=== PATIENT | female | born 1990 | race Caucasian/White ===

== ENCOUNTER 2018-01-12 21:36 | Emergency (ER) | payer OTHER ==
--- OUTSIDE RECORDS SUMMARY | 2018-01-12 21:44 | XMS REPORT | Continuity of Care Document ---
:1990 External Reference #:[id number] Author Name Davida Jerome PA Address [address] [place] [address] Care Team Providers Name Role Phone Vitor Crain M.D. 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 [place] [address] Effective: 1990 Policy Number: Medicaid [facility] Bj Carrasco [id number] Sect Group Name: 1 1 [address] PayID: [id number] [place] [address] Advance Directives Description No Information Available Problems Date Description Provider Status Onset: 05/01/2013 Asthma without status asthmaticus Vitor Crain M.D. Active Family History Date Family Member(s) Problem(s) Comments Mother due to MVA () Uncle Colon Cancer Social History Type Date Description Comments Sex Unknown Marital Status Legal Status: Lives With Spouse Work Status Unemployed Stay at home Mother Tobacco Use Start: Unknown End: Quit Pt quit 9 mos ago Unknown ETOH Use Denies alcohol use Recreational Drug Use Denies Drug Use Tobacco Use Reviewed: 04/13/17 Light tobacco smoker (10 or fewer cigarettes/day) Smoking Status Reviewed: 12/27/17 Light tobacco smoker (10 or fewer cigarettes/day) Allergies, Adverse Reactions, Alerts Date Description Reaction Status Severity Comments 05/01/2013 Latex Active 05/01/2013 Terbinafine Active Medications Medication Date Status Form Strength Qnty SIG Indications Ordering Provider Azithromycin 12/20/ Active Tablets 250mg 6tabs 2 tablets J20.9 2017 day one Castellan then one os, M.D. tablet day2 thru day 5 Proair HFA 08/20/ Active Aerosol 108(90Base 1units 2 puffs J45.909 Vitor 2014 ) mcg/Act every 4 Castellan hours as os, M.D. needed Benzonatate / Active Capsules 200mg Take One Unknown 0000 Capsule By Mouth Three Times A Day Prednisone / Active Tablets 20mg Take Two Unknown 0000 Tablets By Mouth Every Day Alkalol 04/01/ Hx Solution 16Oz use four J01.90 Vitor 2015 - times a day Castellan 04/12/ with os, M.DKi 2016 applicator Sulfamethoxazo 01/08/ Hx Tablets 800-160mg 42tabs 1 by mouth N39.0 Vitor sewell/Trimethopri 2014 - twice a day Castellan m DS 04/12/ os, M.DKi 2016 Azithromycin 12/20/ Hx Tablets 250mg 6tabs 2 now and 1 J01.90 Vitor 2014 - daily x 4 Castellan 01/08/ days os, M.DKi 2014 Omeprazole 12/10/ Hx Capsules 40mg 30caps 1 by mouth K21.0 Vitor 2014 - every day Castellan 04/13/ os, M.DKi 2018 Adenike-Be 08/20/ Hx Tablets 0.35mg one daily Vitor 2014 - Castellan 04/12/ os, M.DKi 2017 Docusate 08/20/ Hx Capsules 100mg 90caps 3 at 564.00 Vitor Huitron 2014 - bedtime Castellan 04/12/ os, M.DKi 2017 Tramadol HCL 04/23/ Hx Tablets 50mg 60tabs 1 every 4 784.0 Vitor 2014 - hours for Castellan 08/20/ headache or os, M.DKi 2015 2 every 4 hours for severe pain. Alprazolam 04/23/ Hx Tablets 0.5mg 3tabs 1 by mouth Vitor 2014 - 1/2 hour Castellan 05/01/ before os, M.DKi 2014 procedure and may repeat at procedure if needed Plus 05/01/ Hx Tablets 27-1mg Vitor 2013 - Castellan 05/01/ os, M.DKi 2014 Immunizations CPT Code Status Date Vaccine Lot # [id number] Given 01/21/2015 Influenza Vac,Quad,Split=>3 Yrs flu>3 [id number] Given 10/15/2013 Tdap Vaccine over 7 yrs old Vital Signs Date Vital Result Comment 12/20/2017 11:07am Weight 202.00 lb BP Systolic 100 mmHg BP Diastolic 70 mmHg Heart Rate 80 /min Body Temperature 99.0 F O2 % BldC Oximetry 98 % 04/13/2017 10:10am Weight 211.00 lb BP Systolic 100 mmHg BP Diastolic 72 mmHg Height 62.25 inches 5'2.25" Heart Rate 72 /min Respiratory Rate 16 /min BMI (Body Mass Index) 38.3 kg/m2 04/12/2016 10:12am Weight 208.00 lb BP Systolic 108 mmHg BP Diastolic 80 mmHg Height 62.25 inches 5'2.25" Heart Rate 72 /min Respiratory Rate 16 /min BMI (Body Mass Index) 37.7 kg/m2 04/01/2015 1:48pm Weight 209.00 lb BP Systolic 100 mmHg BP Diastolic 60 mmHg Heart Rate 110 /min Body Temperature 100.8 F O2 % BldC Oximetry 97 % 01/21/2015 11:00am Weight 211.00 lb BP Systolic 98 mmHg BP Diastolic 84 mmHg 01/08/2015 1:37pm Weight 199.00 lb BP Systolic 100 mmHg BP Diastolic 70 mmHg 12/20/2014 11:05am Weight 212.00 lb BP Systolic 100 mmHg BP Diastolic 70 mmHg Body Temperature 97.7 F 12/10/2014 1:45pm Weight 211.00 lb BP Systolic 102 mmHg BP Diastolic 82 mmHg 08/20/2014 10:59am Weight 203.00 lb BP Systolic 98 mmHg BP Diastolic 80 mmHg Height 62.25 inches 5'2.25" Heart Rate 68 /min Body Temperature 97.7 F Respiratory Rate 16 /min BMI (Body Mass Index) 36.8 kg/m2 05/01/2014 2:25pm Weight 196.00 lb BP Systolic 108 mmHg BP Diastolic 76 mmHg 04/23/2014 2:05pm Weight 194.00 lb BP Systolic 110 mmHg BP Diastolic 88 mmHg 11/27/2013 11:03am Weight 195.50 lb BP Systolic 100 mmHg BP Diastolic 64 mmHg 09/26/2013 3:56pm Weight 197.00 lb BP Systolic 100 mmHg BP Diastolic 68 mmHg 09/17/2013 4:08pm Weight 187.00 lb BP Systolic 92 mmHg BP Diastolic 66 mmHg 07/31/2013 9:17am Weight 189.00 lb 05/01/2013 4:00pm Weight 186.00 lb Height 62 inches 5'2" BMI (Body Mass Index) 34.0 kg/m2 Results Test Date Facility Test Result H/L Range Note Chlamydia/GC 04/23/2017 [facility] Chlamydia Negative Negative 1 Lisbeth, Urine [phone] Trachomatis,Ur -PCR Neisseria Gonorrhoeae,Ur -PCR Negative Negative 2 Comprehensive Metabolic Panel 04/23/2017 [facility] Glucose 91 mg/dL 74-106 [phone] BUN 11 mg/dL 7-18 Creatinine 1.0 mg/dL 0.6-1.3 Glom Filtration Rate, Estimate >60 mL/min >60 If >60 mL/min >60 3 BUN/Creat 11.0 ratio Sodium 139 mmol/L 136-145 Potassium 3.3 mmol/L Low 3.5-5.1 Chloride 107 mmol/L 98-107 Carbon Dioxide 28 mmol/L 21-32 Anion Gap 4 mEq/L Low 8-16 Calcium 8.7 mg/dL 8.5-10.1 Total Protein 7.6 g/dL 6.4-8.2 Albumin 3.9 g/dL 3.4-5.0 Globulin 3.7 g/dL 1.9-4.3 Alb/Glob 1.1 ratio Bilirubin,Total 0.4 mg/dL 0.2-1.0 Sgot/Ast 16 U/L 15-37 SGPT/Alt 21 U/L 12-78 Alkaline Phosphatase 69 U/L 45-117 CBS W/Automated 04/23/2017 [facility] White Blood 11.9 K/uL High 3.1-10.7 Diff [phone] Count Red Blood Count 5.29 M/uL 3.90-5.40 Hemoglobin 14.8 gm/dL 11.6-15.8 Hematocrit 43.7 % 36.0-46.1 Mean Cell Volume 82.6 fl 80.9-99.0 Mean Corpuscular HGB 28.0 pg 25.9-32.7 Mean Corpuscular HGB Conc 33.9 g/dL 30.8-34.3 Platelet Count 351 K/uL 155-360 Red Cell Distri Width SD 43.9 fl 3-47 Red Cell Distri Width %CV 14.7 % High 11.7-14.4 Mean Platelet Volume 10.1 fL 8.9-12.4 Neut% 71.4 % 40.4-72.8 Lymph % 21.3 % 20.0-42.0 [place] % 5.0 % 4.3-13.2 Eo% 2.1 % 0.0-6.6 Bas% 0.2 % 0.0-1.1 Neut# 8.50 K/uL High 1.8-7.0 Lymph # 2.53 K/uL 1.0-4.0 [place] # 0.60 K/uL 0.3-0.9 Eos # 0.25 K/uL 0.0-0.5 Baso # 0.02 K/uL 0.0-0.1 Slide Review 04/23/2017 [facility] Slide Review (SEE NOTE) 4 [phone] Urine HCG 04/23/2017 [facility] Urine HCG NEGATIVE Negative 5 (Qualitative) [phone] (Qualitative) Source: URINE, CLEAN CAT <SEE NOTE> 6 Ua RFX Micro & Culture II 04/23/2017 [facility] Urine Color YELLOW Yellow [phone] Urine Clarity CLEAR Clear Urine Glucose - Dipstick NEGATIVE mg/dL Negative Urine Bilirubin - Dipstick NEGATIVE Negative Urine Ketone NEGATIVE mg/dL Negative Urine Specific [place] <=1.005 Low 1.010-1.030 Urine Blood NEGATIVE Negative Urine PH 5.5 Low 6.5-7.5 Urine Protein - Dipstick NEGATIVE mg/dL Negative Urine Urobilinogen - Dipstick 0.2 E.U./dL 0.2-1.0 Urine Nitrite - Dipstick NEGATIVE Negative Urine Leuk Esterase NEGATIVE Negative Source: URINE, CLEAN CAT <SEE NOTE> 7 Influenza A/B 03/19/2017 [facility] Influenza A Negative (Negative ) 8 Antigen [phone] Antigen Influenza B Antigen Negative (Negative) 9 Laboratory test 06/17/2016 [facility] Urine HCG NEGATIVE Negative 10, finding [phone] (Qualitative) 11 Comprehensive 04/12/2016 [facility] Glucose 82 mg/dL 74-106 12 Metabolic Panel [phone] BUN 13 mg/dL 7-18 Creatinine 0.8 mg/dL 0.6-1.3 Glom Filtration Rate, Estimate >60 mL/min >60 If >60 mL/min >60 13 BUN/Creat 16.2 ratio Sodium 141 mmol/L 136-145 Potassium 4.0 mmol/L 3.5-5.1 Chloride 110 mmol/L High 98-107 Carbon Dioxide 22 mmol/L 21-32 Anion Gap 9 mEq/L 8-16 Calcium 8.4 mg/dL Low 8.5-10.1 Total Protein 7.6 g/dL 6.4-8.2 Albumin 3.7 g/dL 3.4-5.0 Globulin 3.9 g/dL 1.9-4.3 Alb/Glob 0.9 ratio Bilirubin,Total 0.3 mg/dL 0.2-1.0 Sgot/Ast 13 U/L Low 15-37 14 SGPT/Alt 28 U/L 12-78 Alkaline Phosphatase 67 U/L 45-117 Reflex add FT4? Y CBC 04/12/2016 [facility] White Blood Count 8.4 K/uL 3.1-10.7 [phone] Red Blood Count 4.98 M/uL 3.90-5.40 Hemoglobin 14.2 gm/dL 11.6-15.8 Hematocrit 41.8 % 36.0-46.1 Mean Cell Volume 83.9 fl 80.9-99.0 Mean Corpuscular HGB 28.5 pg 25.9-32.7 Mean Corpuscular HGB Conc 34.0 g/dL 30.8-34.3 Platelet Count 400 K/uL High 155-360 Red Cell Distri Width %CV 14.3 % 11.7-14.4 Mean Platelet Volume 9.5 fL 8.9-12.4 LDL Cholesterol Profile 04/12/2016 [facility] Cholesterol 176 mg/dL <200 15 [phone] Triglycerides 97 mg/dL <150 16 HDL Cholesterol 33 mg/dL Low >40 17 LDL-Cholesterol 124 mg/dL < 100 18 Reflex add FT4? Y TSH Reflex FT4 04/12/2016 [facility] Thyroid Stim 1.45 uIU/mL 0.30 -4.20 And/Or FT3 [phone] Hormone Reflex add FT4? Y Laboratory 01/28/2016 [facility] HCG, Quant < 1.0 mIU/mL 19, test finding [phone] 20 Laboratory 12/16/2015 [facility] Treponema Nonreactive Nonreactive 21, test finding [phone] Antibody 22 [place] Type And 12/16/2015 [facility] Patient A POS 23 Screen [phone] Blood Type Antibody Screen Negative Negative CBC 12/16/2015 [facility] White Blood Count 13.6 K/uL High 3.1- 10.7 [phone] Red Blood Count 4.35 M/uL 3.90-5.40 Hemoglobin 12.2 gm/dL 11.6-15.8 Hematocrit 37.2 % 36.0-46.1 Mean Cell Volume 85.5 fl 80.9-99.0 Mean Corpuscular HGB 28.0 pg 25.9-32.7 Mean Corpuscular HGB Conc 32.8 g/dL 30.8-34.3 Platelet Count 443 K/uL High 155-360 Red Cell Distri Width %CV 14.9 % High 11.7-14.4 Mean Platelet Volume 11.1 fL 8.9-12.4 Comprehensive Metabolic Panel 04/16/2015 [facility] Glucose 95 mg/dL 74-106 [phone] BUN 10 mg/dL 7-18 Creatinine 0.7 mg/dL 0.6-1.3 Glom Filtration Rate, Estimate >60 mL/min >60 If >60 mL/min >60 24 BUN/Creat 14.2 ratio Sodium 139 mmol/L 136-145 Potassium 3.7 mmol/L 3.5-5.1 Chloride 108 mmol/L High 98-107 Carbon Dioxide 23 mmol/L 21-32 Anion Gap 8 mEq/L 8-16 Calcium 8.1 mg/dL Low 8.5-10.1 Total Protein 6.7 g/dL 6.4-8.2 Albumin 3.7 g/dL 3.4-5.0 Globulin 3.0 g/dL 1.9-4.3 Alb/Glob 1.2 ratio Bilirubin,Total 0.3 mg/dL 0.2-1.0 Sgot/Ast 11 U/L Low 15-37 25 SGPT/Alt 20 U/L 12-78 Alkaline Phosphatase 51 U/L 45-117 Laboratory test 04/16/2015 [facility] Thyroid Stim 0.68 uIU/mL 0.36-3.74 finding [phone] Hormone Vitamin D,25-Hydroxy 20.4 ng/mL Low 30.0-100.0 26 Antinuclear Antibodies, Ifa Negative . 27 CBS W/Automated Diff 04/16/2015 [facility] White Blood 8.1 K/uL 3.1-10.7 [phone] Count Red Blood Count 4.60 M/uL 3.90-5.40 Hemoglobin 13.0 gm/dL 11.6-15.8 Hematocrit 38.3 % 36.0-46.1 Mean Cell Volume 83.3 fl 80.9-99.0 Mean Corpuscular HGB 28.3 pg 25.9-32.7 Mean Corpuscular HGB Conc 33.9 g/dL 30.8-34.3 Platelet Count 275 K/uL 155-360 Red Cell Distri Width SD 43.5 fl 3-47 Red Cell Distri Width %CV 14.8 % High 11.7-14.4 Mean Platelet Volume 10.2 fL 8.9-12.4 Neut% 64.7 % 40.4-72.8 Lymph % 25.2 % 17.0-46.1 [place] % 7.8 % 4.3-13.2 Eo% 2.1 % 0.0-6.6 Bas% 0.2 % 0.0-1.1 Neut# 5.21 K/uL 1.8-7.0 Lymph # 2.03 K/uL 1.8-7.0 [place] # 0.63 K/uL 0.3-0.9 Eos # 0.17 K/uL 0.0-0.5 Baso # 0.02 K/uL 0.0-0.1 Laboratory test 04/16/2015 [facility] Sedimentation Rate 5 mm/hr 0 -20 finding [phone] Laboratory test 03/25/2015 [facility] CSF Glucose 53 mg/dL 50-75 finding [phone] CSF Total Protein 26.7 mg/dL 15.0-45.0 CSF Cell Count/Diff Tube 03/25/2015 [facility] Color (Tube 1) COLORLESS 4 [phone] Appearance (Tube 1) CLEAR CSF Wbc (Tube 1) 0 /mm3 0-5 CSF Rbc (Tube 1) 0 /mm3 -0 Color (Tube 4) COLORLESS Appearance (Tube 4) CLEAR CSF Wbc (Tube 4) 1 /mm3 0-5 CSF Rbc (Tube 4) 2 /mm3 High -0 CSF Polys (Tube 4) 14 % High 0-6 CSF Lymphs (Tube 4) 66 % High 40-60 CSF Monos (Tube 4) 20 % 15-45 CSF Culture With Gram Stain 03/25/2015 [facility] Gram Stain See Note 28 [phone] CSF Culture See Note 29 Laboratory test 03/25/2015 [facility] HCG,Serum NEGATIVE (Negative ) finding [phone] (Qualitative) Laboratory test 03/15/2015 [facility] Urine HCG NEGATIVE Negative 30 finding [phone] (Qualitative) Comprehensive 01/13/2015 [facility] Glucose 80 mg/dL 74-106 Metabolic Panel [phone] BUN 7 mg/dL 7-18 Creatinine 0.9 mg/dL 0.6-1.3 Glom Filtration Rate, Estimate >60 mL/min >60 If >60 mL/min >60 31 BUN/Creat 7.7 ratio Sodium 140 mmol/L 136-145 Potassium 3.5 mmol/L 3.5-5.1 Chloride 107 mmol/L 98-107 Carbon Dioxide 25 mmol/L 21-32 Anion Gap 8 mEq/L 8-16 Calcium 8.6 mg/dL 8.5-10.1 Total Protein 7.2 g/dL 6.4-8.2 Albumin 3.7 g/dL 3.4-5.0 Globulin 3.5 g/dL 1.9-4.3 Alb/Glob 1.1 ratio Bilirubin,Total 0.2 mg/dL 0.2-1.0 Sgot/Ast 15 U/L 15-37 SGPT/Alt 21 U/L 12-78 Alkaline Phosphatase 70 U/L 45-117 Glycohemoglobin A1c 01/13/2015 [facility] Glycohemoglobin 5.2 % 4.2-6.3 32 [phone] (A1c) eAG 103 mg/dL Laboratory test 01/13/2015 [facility] HCG,Serum NEGATIVE (Negative ) finding [phone] (Qualitative) Laboratory test 10/22/2014 [facility] HCG,Serum NEGATIVE (Negative ) finding [phone] (Qualitative) Urine Screen 10/22/2014 [facility] Urine Color YELLOW Yellow [phone] Urine Clarity CLEAR Clear Urine Glucose - Dipstick NEGATIVE mg/dL Negative Urine Bilirubin - Dipstick NEGATIVE Negative Urine Ketone NEGATIVE mg/dL Negative Urine Specific [place] 1.025 1.010-1.030 Urine Blood NEGATIVE Negative Urine PH 5.5 Low 6.5-7.5 Urine Protein - Dipstick NEGATIVE mg/dL Negative Urine Urobilinogen - Dipstick 0.2 E.U./dL 0.2-1.0 Urine Nitrite - Dipstick NEGATIVE Negative Urine Leuk Esterase NEGATIVE Negative Laboratory test 10/17/[address] [facility] Throat Beta SEE RESULT 33 finding [phone] Strep Culture BELOW CBC 12/12/2013 [facility] White Blood 15.7 K/uL High 3.1-2 [phone] Count 0.7 Red Blood Count 4.09 M/uL 3.90-5.40 Hemoglobin 11.9 gm/dL 11.6-15.8 Hematocrit 35.4 % Low 36.0-46.1 Mean Cell Volume 86.6 fl 80.9-99.0 Mean Corpuscular HGB 29.1 pg 25.9-32.7 Mean Corpuscular HGB Conc 33.6 g/dL 30.8-34.3 Platelet Count 361 K/uL High 155-360 Red Cell Distri Width %CV 14.4 % 11.7-14.4 Mean Platelet Volume 11.2 fL 8.9-12.4 Laboratory test 12/12/2013 [facility] Rapid Plasma NONREACTIVE 34 finding [phone] Reagin NONREACTIVE Type And Screen 12/12/2013 [facility] Patient Blood A POS [phone] Type Antibody Screen Negative Negative Urine Total Prot 11/23/2013 [facility] Urine Collection Time 24 Hours Timed Profile [phone] Urine Total Volume 2210 mL Urine Total Protein Conc 9.2 mg/dL Urine TP Total (mg/24hr) 203 sirc185fx/24 High CBC W/Automated 11/23/2013 [facility] White Blood 15.5 K/uL High 3.1-10.7 Diff [phone] Count Red Blood Count 3.90 M/uL 3.90-5.40 Hemoglobin 11.7 gm/dL 11.6-15.8 Hematocrit 34.1 % Low 36.0-46.1 Mean Cell Volume 87.4 fl 80.9-99.0 Mean Corpuscular HGB 30.0 pg 25.9-32.7 Mean Corpuscular HGB Conc 34.3 g/dL 30.8-34.3 Platelet Count 357 K/uL 155-360 Red Cell Distri Width SD 43.9 fl 3-47 Red Cell Distri Width %CV 14.1 % 11.7-14.4 Mean Platelet Volume 11.1 fL 8.9-12.4 Neut% 72.1 % 40.4-72.8 Lymph % 19.8 % 17.0-46.1 [place] % 6.9 % 4.3-13.2 Eo% 1.0 % 0.0-6.6 Bas% 0.2 % 0.0-1.1 Neut# 11.17 K/uL High 1.0-7.0 Lymph # 3.06 K/uL 0.8-3.4 [place] # 1.06 K/uL High 0.3-0.9 Eos # 0.15 K/uL 0.0-0.5 Baso # 0.03 K/uL 0.0-0.1 Glucose,1 HR Post 09/24/2013 [facility] 1 HR Glucose,Post 97 mg/dL -138 35 Glucola [phone] Glucola 1 Hour Urine Glucose 1/10 % High Negative 1 Hour Urine Ketone NEGATIVE Negative Laboratory test 09/24/2013 [facility] Urine Culture See Note 36 finding [phone] Urinalysis With 09/24/2013 [facility] Urine Color YELLOW Yellow Microscopic [phone] Urine Clarity CLEAR Clear Urine Glucose - Dipstick 100 mg/dL High Negative Urine Bilirubin - Dipstick NEGATIVE Negative Urine Ketone TRACE mg/dL High Negative Urine Specific [place] >=1.030 1.010-1.030 Urine Blood NEGATIVE Negative Urine PH 6.0 Low 6.5-7.5 Urine Protein - Dipstick TRACE mg/dL Negative Urine Urobilinogen - Dipstick 2.0 E.U./dL High 0.2-1.0 Urine Nitrite - Dipstick NEGATIVE Negative Urine Leuk Esterase NEGATIVE Negative Urine RBC 0-2 rbc/hpf 0-7 Urine WBC 0-2 wbc/hpf 0-7 Urine Epithelial Cells MANY NONESEEN/lpf 37 Urine Uric Acid Crystals FEW NONESEEN Urine Bacteria FEW NONESEEN Urine Mucus MODERATE NONESEEN Hemoglobin/Hematocrit 09/24/2013 [facility] Hemoglobin 11.6 gm/dL 11.6-15.8 [phone] Hematocrit 33.8 % Low 36.0-46.1 Laboratory test 07/10/2013 [facility] Afp,Tetra Profile REF# [id number] 38 finding [phone] Laboratory test 06/21/2013 [facility] Glucose 81 mg/dL 76 39 finding [phone] 15 Glycohemoglobin 06/21/2013 [facility] Glycohemoglobin 5.1 % 4. 40 A1c [phone] (A1c) 8- 6. 0 eAG 100 mg/dL Urine Screen 05/18/2013 [facility] Urine Color YELLOW Yellow [phone] Urine Clarity CLEAR Clear Urine Glucose - Dipstick NEGATIVE mg/dL Negative Urine Bilirubin - Dipstick NEGATIVE Negative Urine Ketone NEGATIVE mg/dL Negative Urine Specific [place] <=1.005 Low 1.010-1.030 Urine Blood NEGATIVE Negative Urine PH 6.0 Low 6.5-7.5 Urine Protein - Dipstick NEGATIVE mg/dL Negative Urine Urobilinogen - Dipstick 0.2 E.U./dL 0.2-1.0 Urine Nitrite - Dipstick NEGATIVE Negative Urine Leuk Esterase NEGATIVE Negative Laboratory test 04/23/2013 [facility] HCG, Quant 54565.0 mIU/mL 41 finding [phone] Type And Screen 04/23/2013 [facility] Patient Blood A POS [phone] Type Antibody Screen Negative Negative Affirm 04/13/2013 [facility] Trichomonas Negative [Negative] Vaginitis Panel [phone] vaginalis Gardnerella vaginalis Negative [Negative] Veronica species Negative [Negative] Chlamydia/GC Lisbeth 04/13/2013 [facility] Chlamydia Negative Negative [phone] Trachomatis, Lisbeth Neisseria Gonorrhoeae, Lisbeth Negative Negative Please note: See Note 42 Genital Culture W/ Gram Stain 04/13/2013 [facility] Gram Stain See Note 43 [phone] Genital Culture See Note 44 Laboratory test 04/13/2013 [facility] HCG Serum, POSITIVE High finding [phone] Qualitative Laboratory test 04/13/2013 [facility] HCG, Quant 379.0 mIU/mL 45 finding [phone] Urine Screen 04/13/2013 [facility] Urine Color YELLOW Yellow [phone] Urine Clarity CLEAR Clear Urine Glucose - Dipstick NEGATIVE mg/dL Negative Urine Bilirubin - Dipstick NEGATIVE Negative Urine Ketone NEGATIVE mg/dL Negative Urine Specific [place] >=1.030 1.010-1.030 Urine Blood NEGATIVE Negative Urine PH 6.0 Low 6.5-7.5 Urine Protein - Dipstick NEGATIVE mg/dL Negative Urine Urobilinogen - Dipstick 0.2 E.U./dL 0.2-1.0 Urine Nitrite - Dipstick NEGATIVE Negative Urine Leuk Esterase NEGATIVE Negative 1 OVARIAN CYST 2 A negative result for either C. trachomatis and/or N. gonorrhoeae does not preclued an infection because results are dependent on adequate specimen collection, absence of inhibitors, and sufficient DNA to be detected. 3 Note: Persistent reduction for 3 months or more in an eGFR <60 mL/min/1.73 m2 defines CKD. Patients with eGFR values >/=60 mL/min/1.73 m2 may also have CKD if evidence of persistent proteinuria is present. The original MDRD equation for estimated GFR is not valid for patients less than 18 years of age. Additional information may be found at www.kdoqi.org. 4 Instrument flagged sample for slide review. Less than 10% Bands seen, no other immature WBC's seen. RBC morphology essentially normal. Platelet estimate=NORMAL 5 FIRST MORNING SPECIMENS GENERALLY CONTAIN THE HIGHEST CONCENTRATION OF HCG AND ARE RECOMMENDED FOR EARLY DETECTION OF . Method: Quidel QuickVue One-Step Immunoassay 6 URINE, CLEAN CATCH 7 URINE, CLEAN CATCH 8 EXPOSED TO FLU, SORE THROAT, EARS HURT 9 Please Note: A POSITIVE result for influenza A and/or B antigen does not rule out a co-infection with other pathogens or identify any specific influenza A virus subtype. A NEGATIVE result for influenza A and/or B antigen does not preclude influenza virus infection and should not be the sole basis for treatment or other management decisions, since the antigen present in the specimen may be below the detection limit of the test. A NEGATIVE result is PRESUMPTIVE and it is recommended these results be confirmed by virus culture or an FDA-cleared influenza A and B molecular assay. Method: evlyitor Chromatographic immunoassay 10 MAY BE , COLD SYMPTOMS 11 FIRST MORNING SPECIMENS GENERALLY CONTAIN THE HIGHEST CONCENTRATION OF HCG AND ARE RECOMMENDED FOR EARLY DETECTION OF . Method: Quidel QuickVue One-Step Immunoassay 12 E66.09 13 Note: Persistent reduction for 3 months or more in an eGFR <60 mL/min/1.73 m2 defines CKD. Patients with eGFR values >/=60 mL/min/1.73 m2 may also have CKD if evidence of persistent proteinuria is present. The original MDRD equation for estimated GFR is not valid for patients less than 18 years of age. Additional information may be found at www.kdoqi.org. 14 Values below the stated reference ranges of AST and ALT can be seen in normal populations. Clinical correlation is suggested. 15 Reference Guidelines*: Desirable: ........... < 200 mg/dL Borderline High: ..... 200-239 mg/dL High: ................ >=240 mg/dL * The National Cholesterol Education Program (NCEP) 16 Reference Guidelines*: Normal: ............. < 150 mg/dL Borderline High: .... 150-199 mg/dL High: ............... 200-499 mg/dL Very High: .......... > 500 mg/dL * Source: National Cholesterol Education Program (NCEP) 17 Reference Guidelines*: Low HDL: ..... < 40 mg/dL Normal: ..... 40-60 mg/dL Desirable: ... > 60 mg/dL *The National Cholesterol Education Program(NCEP) 18 Reference Guidelines*: Optimal:........... <100 mg/dL Near Optimal....... 100-129 mg/dL Borderline High.... 130-159 mg/dL High............... 160-189 mg/dL Very High.......... >=190 mg/dL * Source: National Cholesterol Education Program (NCEP) 19 Z39.2 20 Approximate Gestational Age and Total BHCG Range: 0.2 - 1 Week........................5-50 mIU/mL 1 - 2 Weeks.....................50-500 mIU/mL 2 - 3 Weeks..................100-5,000 mIU/mL 3 - 4 Weeks.................500-10,000 mIU/mL 4 - 5 Weeks...............1,000-50,000 mIU/mL 5 - 6 Weeks.............10,000-100,000 mIU/mL 6 - 8 Weeks.............15,000-200,000 mIU/mL 2 - 3 Months............10,000-100,000 mIU/mL 21 DELIVERY 22 Please Note: A nonreactive test result does not exclude the possibility of exposure to, or infection with syphilis. T. pallidum antibodies may be undetectable in some stages of the infection and in some clinical conditions. 23 DELIVERY. 24 Note: Persistent reduction for 3 months or more in an eGFR <60 mL/min/1.73 m2 defines CKD. Patients with eGFR values >/=60 mL/min/1.73 m2 may also have CKD if evidence of persistent proteinuria is present. The original MDRD equation for estimated GFR is not valid for patients less than 18 years of age. Additional information may be found at www.kdoqi.org. 25 Values below the stated reference ranges of AST and ALT can be seen in normal populations. Clinical correlation is suggested. 26 Vitamin D deficiency has been defined by the [place] [employer] and an Endocrine Society practice guideline as a level of serum 25-OH vitamin D less than 20 ng/mL (1,2). The Endocrine Society went on to further define vitamin D insufficiency as a level between 21 and 29 ng/mL (2). 1. IOM ([place] [employer]). 2010. Dietary reference intakes for calcium and D. [place]: The National Academies Press. 2. Ac MF, Brooks HERRERA, Junior العلي, et al. Evaluation, treatment, and prevention of vitamin D deficiency: an Endocrine Society clinical practice guideline. JCEM. 2010; 96(7):1911-30. Performed at: RN - [facility] [address] [id number] Application Support Technician: Kylie Elena MD, Phone: [phone] Negative <1:80 Borderline 1:80 Positive >1:80 Performed at: RN - [facility] [address] [id number] Application Support Technician: Kylie Elena MD, Phone: [phone] GRAM STAIN ! NO ORGANISMS SEEN BY CYTOSPIN SMEAR 29 NO GROWTH: FINAL REPORT 30 FIRST MORNING SPECIMENS GENERALLY CONTAIN THE HIGHEST CONCENTRATION OF HCG AND ARE RECOMMENDED FOR EARLY DETECTION OF . 31 Note: Persistent reduction for 3 months or more in an eGFR <60 mL/min/1.73 m2 defines CKD. Patients with eGFR values >/=60 mL/min/1.73 m2 may also have CKD if evidence of persistent proteinuria is present. The original MDRD equation for estimated GFR is not valid for patients less than 18 years of age. Additional information may be found at www.kdoqi.org. 32 Elevated levels of HbA1c suggest the need for more aggressive treatment of glycemia. The [place] [employer] recommends that a primary goal of therapy should be a HbA1c of <7% and that physicians should re-evaluate the treatment regimen in patients with HbA1c values consistently >8%. 33 SEE RESULT BELOW Name: BJ CARRASCO Shama : [address]: Gricelda Vázquez Acct: [id number] Unit: [id number] AGE: 23 Location: [facility] Re10/17/14 SEX: F Status: DEP ER SPEC: [id number] ALISON: 10/17/14-[address] [facility] [address]: Gricelda Farley DO REQ: [id number] RECD: 10/18/[id number] STATUS: ENE WILLS DR: Vitor Crain MD _ SOURCE: THROAT SPDESC: ORDERED: Throat Beta Str Procedure Result Verified Site Throat Beta Strep Culture Final 10/20/14- 0744 ML Negative For Group A Beta Streptococcus * ML - MAIN LAB ([facility]) . END OF REPORT * ML=Testing performed at Main Lab DEPARTMENT OF PATHOLOGY, [address] [place] [address] Simeon Pollack M.D. Director [facility] # [id number] 34 PENDING; TEST PERFORMED ON MONDAYS AND THURSDAYS 35 POST GLUCOLA 36 COLONY COUNT ! 10,000 - 20,000 CFU/ml Organism 1 ! MIXED URETHRAL DAWNA 37 POSSIBLE UROGENITAL CONTAMINATION. 38 FORWARDED TO REFERENCE LABORATORY. 39 QUERY: Is the Patient Fasting? Y 40 A1c value between 5.7% and 6.4% is considered at increased risk for diabetes. A1c value greater than 6.5 % is considered essentially diagnostic for Type II diabetes. Current guidelines recommend a treatment goal of <7% for diabetic patients. This method will measure glycosylated hemoglobin variants, HbS, HbG, HbH, HbWayne, HbC, HbE, etc. Other hemoglobin- opathies may give incorrect results with this test. 41 Approximate Gestational Age and Total BHCG Range: 0.2 - 1 Week........................5-50 mIU/mL 1 - 2 Weeks.....................50-500 mIU/mL 2 - 3 Weeks..................100-5,000 mIU/mL 3 - 4 Weeks.................500-10,000 mIU/mL 4 - 5 Weeks...............1,000-50,000 mIU/mL 5 - 6 Weeks.............10,000-100,000 mIU/mL 6 - 8 Weeks.............15,000-200,000 mIU/mL 2 - 3 Months............10,000-100,000 mIU/mL 42 Acceptable specimens for this test are male urethral swab, endocervical swab and liquid based pap specimens, vaginal swabs in APTIMA transports and first void urine. See online Directory of Services for test number for rectal and pharyngeal specimens. Performed at: RN - [facility] [address] [id number] Application Support Technician: Kylie Elena MD, Phone: [phone] GRAM STAIN ! GRAM STAIN INDICATES NORMAL GENITAL DAWNA ! VERY FEW GR POS. BACILLI SUGGESTIVE OF LACTOBACILLUS ! SP. ! VERY FEW GRAM POSITIVE COCCI 44 GENITAL DAWNA 45 Approximate Gestational Age and Total BHCG Range: 0.2 - 1 Week........................5-50 mIU/mL 1 - 2 Weeks.....................50-500 mIU/mL 2 - 3 Weeks..................100-5,000 mIU/mL 3 - 4 Weeks.................500-10,000 mIU/mL 4 - 5 Weeks...............1,000-50,000 mIU/mL 5 - 6 Weeks.............10,000-100,000 mIU/mL 6 - 8 Weeks.............15,000-200,000 mIU/mL 2 - 3 Months............10,000-100,000 mIU/mL Procedures Date Code Description Status 12/20/2017 79322 Oximetry For Oxygen,Single Determ Completed 08/20/2014 78360 Audiogram, Screen Only Pure Tone Completed Encounters Type Date Location Provider Dx Diagnosis Office Visit 12/20/2017 Main Office Davida Jerome PA J06.9 Acute upper respiratory 11:00a infection, unspecified J20.9 Acute bronchitis, unspecified R05 Cough J98.01 Acute bronchospasm Office Visit 04/13/2017 10:00a Main Office Vitor Crain, Z00.01 Encounter for M.D. general adult medical exam w abnormal findings E66.09 Other obesity due to excess calories J45.909 Unspecified asthma, uncomplicated G93.2 Benign intracranial hypertension K21.9 Gastro-esophageal reflux disease without esophagitis Office Visit 04/12/2016 10:00a Main Office Vitor Crain Z00.00 Encntr for M.D. general adult medical exam w/o abnormal findings E66.09 Other obesity due to excess calories K21.9 Gastro-esophageal reflux disease without esophagitis J45.909 Unspecified asthma, uncomplicated G93.2 Benign intracranial hypertension Office Visit 04/01/2015 1:45p Main Office Vitor Crain J01.90 Acute sinusitis, M.D. unspecified Office Visit 01/21/2015 10:45a Main Office Vitor Crain K21.9 Gastro-esophageal M.D. reflux disease without esophagitis Z23 Encounter for immunization Office Visit 01/08/2015 1:30p Main Office Vitor Crain N39.0 Urinary tract M.D. infection, site not specified R10.2 Pelvic and perineal pain R31.9 Hematuria, unspecified K21.9 Gastro-esophageal reflux disease without esophagitis Office Visit 12/20/2014 10:30a Main Office Vitor Crain J01.90 Acute sinusitis, M.D. unspecified Office Visit 12/10/2014 1:30p Main Office Vitor Crain K21.0 Gastro-esophageal M.D. reflux disease with esophagitis Office Visit 08/20/2014 10:30a Main Office Vitor Crain, V70.0 Examination M.D. General Medical Routine AT [facility] 278.02 Overweight 493.90 Asthma Unspec W/O Status Asthmaticus 564.00 Constipation Unspecified Office Visit 05/01/2014 2:00p Main Office Vitor Crain M.D. 784.0 Headache 278.02 Overweight Office Visit 04/23/2014 1:45p Main Office Vitor Crain M.D. 784.0 Headache 348.2 Hypertension Benign Intracranial Office Visit 11/27/2013 11:00a Main Office Vitor Crain 765.29 Gestation, 37 Or M.D. More Weeks Of 305.1 Tobacco Use Disorder Office Visit 09/26/2013 Main Office Vitor 381.4 Otitis Media Acute 3:30p Louisa Crain Or Chronic Nonsuppurative Office Visit 09/17/2013 Main Office Vitor 381.4 Otitis Media Acute 4:00p Louisa Crain Or Chronic Nonsuppurative Office Visit 07/31/2013 Main Office Vitor 765.21 Gestation, Less That 9:30a Louisa Crain 24 Completed Weeks Of 305.1 Tobacco Use Disorder 493.90 Asthma Unspec W/O Status Asthmaticus Office Visit 05/01/2013 4:00p Main Office Vitor Crain 765.21 Gestation, Less MKiDKi That 24 Completed Weeks Of 493.90 Asthma Unspec W/O Status Asthmaticus 305.1 Tobacco Use Disorder Plan of Treatment Future Appointment(s):04/14/2018 10:00 am - Vitor Crain M.D. at Main Gqfqzm9212/20/2017 - Davida Jerome, PAJ06.9 Acute upper respiratory infection, tdenvhhainnY83.9 Acute bronchitis, unspecifiedNew Medication:Azithromycin 250 mg - 2 tablets day one then one tablet day2 thru day 5R05 YjxxfF48.01 Acute bronchospasm
[2018-01-12 21:50] VITALS: BP 123/77
--- NOTE | 2018-01-12 21:50 | UC ---
General HPI - HPI Summary HPI Summary: The enrollee is a 27 yo female with a diagnosis if pseudotumor cerebri. Pt had a theraputic LP on Tuesday evening. Pt has a follow-up appt with Dr. Caldera tomorrow morning. Pt reports persistent العلي and nausea. No vomiting. No fever, chills. Pt states she uses Motrin and APAP with little relief. Last dose this am. No different to this العلي. No fever, chills, rash. No cp, sob, abd pain. No vomiting. Pt states previously has used zofran with good relief of nausea. Pt's medications reviewed this visit Not - History of Current Complaint Stated Complaint: HEADACHE AND NAUSEA Time Seen by Provider: 01/12/18 21:46 Hx Obtained From: Patient, Medical Records Hx Last Menstrual Period: 02/05/15 - Allergy/Home Medications Allergies/Adverse Reactions: Allergies Allergy/AdvReac Type Severity Reaction Status Date / Time latex Allergy Mild localized Verified 01/12/18 21:58 skin irritation turbinophine Allergy Intermediate Difficulty Uncoded 07/13/15 20:18 Breathing/Wheezing Home Medications: Home Medications Zonisamide (NF) [Zonegran (NF)] 50 mg BEDTIME 01/12/18 [History Confirmed ] PMH/Surg Hx/FS Hx/Imm Hx Previously Healthy: Yes - pseudotumor cerebri - Surgical History Surgical History: Yes Surgery Procedure, Year, and Place: TONSILLECTOMY - Family History Known Family History: Positive: Other - non contributory - Social History Alcohol Use: None Substance Use Type: None Smoking Status (MU): Current Every Day Smoker Type: Cigarettes Amount Used/How Often: 5-6 CIGS PER DAY Length of Time of Smoking/Using Tobacco: 5 YRS Have You Smoked in the Last Year: Yes When Did the Patient Quit Smoking/Using Tobacco: 12/12/13 Household Exposure Type: Cigarettes - Immunization History Most Recent Influenza Vaccination: 2014/2016 season Review of Systems Gastrointestinal: Nausea Motor: Negative Neurovascular: Other - العلي All Other Systems Reviewed And Are Negative: Yes Physical Exam - Summary Physical Exam Summary: Vital Signs Reviewed: Yes A+Ox3, no distress Eyes: Conjunctiva Clear, SHIVAM. EOM intact and full ENT: Hearing grossly normal TM x 2 clear, no photophobia, mmoist, uvula midline , no exudate, no erythema Neck: Positive: Supple Respiratory: Positive: No respiratory distress, No accessory muscle use + CTA throughout no w/r Cardiovascular: RRR nl s1, s2 no m/r CBT <2 sec abd soft + BS nt/nd no guarding, no distension Musculoskeletal Exam: BRITTON x 4 without difficulty Strength Intact, ROM Intact Neurological: Positive: Alert, + sensation throughout pt ambulating without difficulty Psychological: Positive: Normal Response To Family Skin: Positive: no rash, no ecchymosis Triage Information Reviewed: Yes Course/Dx - Course Course Of Treatment: Pt with ongoing العلي and nausea related to psuedotumor cerebri. Pt scheduled for appt tomorrow with Dr. Caldera. Pt requesitng zofran for nause a-previous good relief. not . will give dose here, disp 2. keep appt. return precautions - Differential Dx - Multi-Symptom Provider Diagnoses: العلي. nausea Discharge - Sign-Out/Discharge Documenting (check all that apply): Patient Departure All imaging exams completed and their final reports reviewed: No Studies - Discharge Plan Condition: Stable Disposition: HOME Patient Education Materials: General Headache (ED) Referrals: Kirby Caldera MD [Medical Doctor] - (tomorrow morning as scheduled) Vitor Crain MD [Primary Care Provider] - Additional Instructions: okay to take medication as prescribed for nausea frequent, small sips of fluids Take your pain medication as previously prescribed for your headaches - alternating ibuprofen (Motrin, Advil) and tylenol every 3 hours for pain. Take with food. Keep your appointment tomorrow morning with Dr. Caldera as scheduled - Billing Disposition and Condition Condition: STABLE Disposition: Home
[2018-01-12] MEDS ORDERED: Ondansetron ODT TAB* 4 MG PO ONE ×2 (21:57)
[2018-01-12] MEDS ORDERED: Acetaminophen TAB* 325 MG PO ONE (22:02)
== END 2018-01-12 22:11 | disposition home or self-care (01) ==
LOC: UCCORT 21:36
DX: R51 Headache (principal); R11.0 Nausea; G93.2 Benign intracranial hypertension; F17.210 Nicotine dependence, cigarettes, uncomplicated; Z91.040 Latex allergy status; Z88.8 Allergy status to other drugs, medicaments and biological substances
CPT/HCPCS: 99212; A9270-GY; G0463

== ENCOUNTER → 2018-01-13 11:24 | Emergency (ER) | payer OTHER ==
[~2018-01-13 11:24] MED LIST: Ibuprofen TAB* 800 MG PO ONE; Lidocaine 2% PF* 10 ML AMP ONE
--- NOTE | 2018-01-13 12:27 | ED ---
Headache - HPI Summary HPI Summary: Patient is a 19-year-old female who presents emergency department for ongoing headache. Patient states she is a history of pseudotumor tumor cerebri and had a lumbar puncture done in [place] [facility] on Tuesday. Patient states lumbar puncture did not help and she continues to have headaches. Patient was to see Dr. Caldera, neurology, and office today at 1145 but her appointment was canceled because he was on a consult in the hospital. Patient then presented to the ER for evaluation. She notes nausea and photophobia. She notes tingling in bilateral hands. Otherwise denies unilateral weakness. Symptoms are moderate in severity. Lights and noise exacerbates symptoms. Nothing makes symptoms better. Headache does not change with position. Otherwise denies fever, chills, neck pain, recent illness. No other significant past medical history. Currently taking zonizamide for headaches. - History Of Current Complaint Chief Complaint: EDHeadache Stated Complaint: HEADACHE Time Seen by Provider: 01/13/18 12:15 Hx Obtained From: Patient Hx Last Menstrual Period: 02/05/15 - Allergies/Home Medications Allergies/Adverse Reactions: Allergies Allergy/AdvReac Type Severity Reaction Status Date / Time latex Allergy Mild localized Verified 01/12/18 21:58 skin irritation turbinophine Allergy Intermediate Difficulty Uncoded 07/13/15 20:18 Breathing/Wheezing PMH/Surg Hx/FS Hx/Imm Hx Previously Healthy: Yes Respiratory History: Reports: Hx Asthma - Surgical History Surgery Procedure, Year, and Place: TONSILLECTOMY Infectious Disease History: No Infectious Disease History: Denies: Hx Clostridium Difficile, Hx Hepatitis, Hx Human Immunodeficiency Virus (HIV), Hx of Known/Suspected MRSA, Hx Shingles, Hx Tuberculosis, Hx Known/ Suspected VRE, Hx Known/Suspected VRSA, History Other Infectious Disease, Traveled Outside the [place] in Last 30 Days - Family History Known Family History: Positive: None, Other - non contributory - Social History Occupation: Unemployed Lives: With Family Alcohol Use: None Substance Use Type: Reports: None Smoking Status (MU): Current Every Day Smoker Type: Cigarettes Amount Used/How Often: 5-6 CIGS PER DAY Length of Time of Smoking/Using Tobacco: 5 YRS Have You Smoked in the Last Year: Yes Review of Systems Constitutional: Negative Negative: Fever, Chills Positive: Photophobia ENT: Negative Cardiovascular: Negative Respiratory: Negative Positive: Nausea Skin: Negative Positive: Headache. Negative: Weakness, Paresthesia, Numbness All Other Systems Reviewed And Are Negative: Yes Physical Exam Triage Information Reviewed: Yes Vital Signs On Initial Exam: Initial Vitals Temp Pulse Resp BP Pulse Ox 97.8 F 67 16 113/65 99 01/13/18 12:04 01/13/18 12:04 01/13/18 12:04 01/13/18 12:04 01/13/18 12:04 Vital Signs Reviewed: Yes Appearance: Positive: Well-Appearing - Patient sleeping when I walked in the room. No acute distress. Skin: Positive: Warm, Dry Head/Face: Positive: Normal Head/Face Inspection Eyes: Positive: Normal, EOMI, SHIVAM, Conjunctiva Clear Neck: Positive: Supple Respiratory/Lung Sounds: Positive: Clear to Auscultation, Breath Sounds Present Cardiovascular: Positive: Normal, RRR Musculoskeletal: Positive: Normal, Strength/ROM Intact Neurological: Positive: Normal, CN Intact II-III Psychiatric: Positive: Affect/Mood Appropriate - Rashawn Coma Scale Best Eye Response: 4 - Spontaneous Best Motor Response: 6 - Obeys Commands Best Verbal Response: 5 - Oriented Coma Scale Total: 15 Diagnostics - Vital Signs Vital Signs Temp Pulse Resp BP Pulse Ox 01/13/18 12:04 97.8 F 67 16 113/65 99 - Laboratory Lab Statement: Any lab studies that have been ordered have been reviewed, and results considered in the medical decision making process. Headache Course/Dx - Course Course Of Treatment: Patient presenting with ongoing headaches. Afebrile with stable vital signs. No neurological deficits. I spoke with Dr. Caldera who states he is relatively new to patient and is not clear on her diagnosis of pseudotumor. He notes that there is no opening pressure performed on Tuesday with lumbar puncture. Dr. Caldera recommends obtaining lumbar puncture today for diagnostics and possibly therapeutic. I spoke with the anesthesiologist and Dr. Roberts agreed to do lumbar puncture in the ER. Please see Dr. Roberts's procedure note. Patient's opening pressure percent to be high at 36 and fluid was withdrawn. On reexamination patient states she is feeling better after lumbar puncture. Patient was evaluated by Dr. Caldera in the ER. Plan to discharge home with outpatient follow-up. Return if symptoms change or worsen. - Diagnoses Provider Diagnoses: Pseudotumor cerebri syndrome Discharge - Sign-Out/Discharge Documenting (check all that apply): Patient Departure - Discharge Plan Condition: Good Disposition: HOME Patient Education Materials: Idiopathic Intracranial Hypertension (ED) Referrals: Kirby Caldera MD [Medical Doctor] - Vitor Crain MD [Primary Care Provider] - Additional Instructions: Follow up with Dr. Caldera as scheduled Take home medication as directed Return to ER if symptoms change or worsen - Billing Disposition and Condition Condition: GOOD Disposition: Home
[2018-01-13 15:47] LABS: Body Fluid Source Cerebral Spinal
--- NOTE | 2018-01-13 16:00 | CONSULT ---
Consult Consult: ANESTHESIOLOGY CONSULT FOR LUMBAR PUNCTURE I was asked by Dr. Caldera to perform a Diagnostic and Therapeutic Lumbar Puncture on this 27 year old woman with a history of Pseudotumor Cerebri. The patient has had multiple lumbar punctures in the past for her condition and has tolerated them well. Past history is remarkable only for Asthma and tobacco use. Her last L.P. was done at [place]: they did not measure opening pressure, and Dr. Caldera wanted me to specifically measure opening pressure and withdraw a total of 15 ml total of CSF. The procedure, and expected risks and benefits were explained to the patient, who understands and agrees. Written consent was obtained. PROCEDURE: The patient was placed in right lateral decubitus position. Her lumbar area was prepped with Chloraprep and allowed to dry. 2% Lidocaine was infiltrated, then a 22 Gauge Spinal Needle was used. An attempt at L4-5 was unsuccessful, followed by a successful puncture at L3-4. Spinal fluid was clear and flowed freely. OPENING PRESSURE WAS MEASURED AT 36 cm H20. Samples sent to Lab: Tube #1 - 1.5 ml Tube #2 - 1.5 ml Tube #3 - 4 ml Tube #4 - 1 ml An additional 7 ml of CSF was withdrawn and discarded, making a total of 15 ml withdrawn. A Band-Aid was applied and the patient turned supine. The patient tolerated the procedure well.
[2018-01-13 16:10] VITALS: BP 137/80
--- NOTE | 2018-01-14 00:43 | CONS ---
NEUROLOGY CONSULTATION: DATE OF CONSULT: 01/13/18 LOCATION: She is in the emergency room. REFERRING PROVIDER: BRITANY Mtz CHIEF COMPLAINT: Headaches. HISTORY OF PRESENT ILLNESS: Abbey Carrasco came to the emergency room today after I had to reschedule her because of a Code [place]. She has a history of pseudotumor cerebri and has been having bad headaches. She went to the [facility] Room this past week and had a lumbar puncture, but it was done in the sitting position, so there was no opening pressure. She says she did not get relief of her headache. She is quite certain that this is a recurrence of her pseudotumor cerebri. She had stopped her acetazolamide last August. She was having bad paresthesias and she just got sick of taking it. It was helping her headaches. She has had blurry vision now for at least a few weeks and persistent headaches. Dr. Tano Roberts kindly performed a lumbar puncture in the emergency room today. He told me that the opening pressure was 36 cm of water. PHYSICAL EXAM: She has bilateral papilledema without hemorrhages. Eye movements are normal. There is no afferent pupillary defect. Her headache is improved. IMPRESSION AND PLAN: Impression is that of recurrence of pseudotumor cerebri. I told her to resume acetazolamide 250 mg twice per day for now and then we will get it back up to 500 mg twice per day. If she finds it to be intolerable or her headaches are not improved, I will add Lasix and try to decrease the acetazolamide. Another option that we discussed is referral to a neuroophthalmologist for possible optic nerve fenestration or consideration of shunting procedures. She has an appointment to see me in followup this coming in the office. We will discuss it further then depending upon her response. Spinal fluid has been sent for cell counts, protein, and glucose. [id number]/CPS #: [id number] [facility]ITALK[facility]ie
== END | disposition home or self-care (01) ==
LOC: ED 11:24
DX: G93.2 Benign intracranial hypertension (principal); F17.210 Nicotine dependence, cigarettes, uncomplicated; J45.909 Unspecified asthma, uncomplicated
CPT/HCPCS: 36415; 62270; 82945; 84157; 89051; 99283; A9270-GY; J2001

== ENCOUNTER 2018-07-31 21:52 | Emergency (ER) | payer OTHER ==
[2018-07-31 22:01] VITALS: BP 123/74
[2018-07-31] MEDS ORDERED: Azithromycin TAB* 250 MG PO ONE (22:03)
[2018-07-31] MEDS ORDERED: Albuterol HFA INHALER* 8 gm MDI INH ONE (22:03)
[2018-07-31] MEDS ORDERED: predniSONE TAB* 20 MG PO ONE (22:03)
--- NOTE | 2018-07-31 22:06 | UC ---
General HPI - HPI Summary HPI Summary: pt presents to for 1 week's worth of cough. she states her cough has been productive. she is a smoker. she denies any fever or chills. she does complain of a headache due to her coughing. - History of Current Complaint Chief Complaint: UCGeneralIllness Stated Complaint: COUGH Hx Obtained From: Patient Hx Last Menstrual Period: end of June, Pain Intensity: 5 - Allergy/Home Medications Allergies/Adverse Reactions: Allergies Allergy/AdvReac Type Severity Reaction Status Date / Time latex Allergy Mild localized Verified 07/31/18 21:55 skin irritation turbinophine Allergy Intermediate Difficulty Uncoded 07/31/18 21:55 Breathing/Wheezing Home Medications: Home Medications Ibuprofen/Pseudoephedrine HCl [Advil Cold & Sinus] 2 tab PO DAILY PRN 07/31/18 [ History Confirmed 07/31/18] acetaZOLAMIDE TAB* [Diamox TAB*] 1,000 mg PO BID 07/31/18 [History Confirmed ] PMH/Surg Hx/FS Hx/Imm Hx Previously Healthy: Yes Respiratory History: Asthma - Surgical History Surgical History: Yes Surgery Procedure, Year, and Place: TONSILLECTOMY - Family History Known Family History: Positive: None, Other - non contributory - Social History Alcohol Use: None Substance Use Type: None Smoking Status (MU): Current Every Day Smoker Type: Cigarettes Amount Used/How Often: 5-6 CIGS PER DAY Length of Time of Smoking/Using Tobacco: 5 YRS Have You Smoked in the Last Year: Yes When Did the Patient Quit Smoking/Using Tobacco: 12/12/13 Household Exposure Type: Cigarettes - Immunization History Most Recent Influenza Vaccination: season Review of Systems All Other Systems Reviewed And Are Negative: No Constitutional: Negative: Fever, Chills Skin: Negative: Rash, Bruising Eyes: Negative: Diplopia, Eye Redness ENT: Positive: Sore Throat - from coughing. Negative: Epistaxis Respiratory: Positive: Cough. Negative: Shortness Of Breath Cardiovascular: Negative: Palpitations, Chest Pain Gastrointestinal: Negative: Abdominal Pain, Vomiting, Diarrhea Genitourinary: Negative: Hematuria, Frequency, Urgency Motor: Negative: Negative Neurovascular: Positive: Negative Musculoskeletal: Positive: Negative Neurological: Positive: Headache Psychological: Positive: Negative Is Patient Immunocompromised?: No Physical Exam Triage Information Reviewed: Yes Appearance: Well-Appearing, No Pain Distress, Well-Nourished Vital Signs: Initial Vital Signs Temp 96.7 F 07/31/18 21:57 Pulse 88 07/31/18 21:57 Resp 16 07/31/18 21:57 BP 123/74 07/31/18 21:57 Pulse Ox 99 07/31/18 21:57 Vital Signs Reviewed: Yes Eye Exam: Normal ENT Exam: Other - edentulous ENT: Positive: Normal ENT inspection, Hearing grossly normal, Pharynx normal Dental Exam: Other - edentulous Neck exam: Normal Neck: Positive: Supple, Nontender Respiratory Exam: Normal Cardiovascular Exam: Normal Abdomen Description: Positive: Nontender, Soft Bowel Sounds: Positive: Present Musculoskeletal Exam: Normal Neurological Exam: Normal Psychological Exam: Normal Skin Exam: Normal Course/Dx - Course Course Of Treatment: clinically pt has bronchitis. her vs were stable. pt given first dose of steroids, antibiotic, spacer and albuterol inhaler with instructions. Pt encouraged to try and stop smoking. she was also encouraged to f/u with pcp. rx sent to pharmacy for above medications. - Differential Dx - Multi-Symptom Differential Diagnoses: Other - pneumonia, uri, bronchitis - Diagnoses Provider Diagnosis: Bronchitis Discharge - Sign-Out/Discharge Documenting (check all that apply): Patient Departure All imaging exams completed and their final reports reviewed: No Studies - Discharge Plan Condition: Stable Disposition: HOME Prescriptions: Albuterol HFA INHALER* [Ventolin HFA Inhaler*] 2 puff INH Q4H PRN #1 mdi PRN Reason: Wheezing Azithromyxin CLAUDE (NF) [Z-Claude (Zithromax) 250 mg tabs #6] 2 tab PO .TODAY, THEN 1 DAILY #6 tab predniSONE TAB* [Deltasone 20 MG TAB*] 60 mg PO DAILY #12 tab Patient Education Materials: Acute Bronchitis (ED) Referrals: Vitor Crain MD [Primary Care Provider] - Additional Instructions: take the antibiotic, steroids, and use the inhaler with spacer as instructed. it is important to follow up with your primary care physician by the end of the week. try to stop smoking. smoking irritates your lungs. return if worse or any new symptoms. - Billing Disposition and Condition Condition: STABLE Disposition: Home
== END 2018-07-31 22:12 | disposition home or self-care (01) ==
LOC: UCCORT 21:52
DX: J40 Bronchitis, not specified as acute or chronic (principal); F17.210 Nicotine dependence, cigarettes, uncomplicated
CPT/HCPCS: 99213; A9270-GY; G0463; J7512

== ENCOUNTER 2018-12-26 09:50 | Emergency (ER) | payer OTHER ==
--- NOTE | 2018-12-26 10:16 | UC ---
Respiratory Complaint HPI - HPI Summary HPI Summary: 28 yo female presents with cough. She tells me that for the past 3-4 weeks she has had a persistent cough that has been intermittently productive with clear/ yellow phlegm. She smokes daily. She has a nebulizer and inhaler at home, but states they are empty and she needs a refill. She denies fever, chills, sinus symptoms, sore throat, SOB, abdominal pain, n/v. - History of Current Complaint Stated Complaint: COUGH Time Seen by Provider: 12/26/18 10:15 Hx Obtained From: Patient Hx Last Menstrual Period: end June, Onset/Duration: Gradual Onset Timing: Constant Severity Initially: Mild Severity Currently: Mild Pain Intensity: 3 Pain Scale Used: 0-10 Numeric - Allergies/Home Medications Allergies/Adverse Reactions: Allergies Allergy/AdvReac Type Severity Reaction Status Date / Time latex Allergy Mild localized Verified 12/26/18 10:30 skin irritation turbinophine Allergy Intermediate Difficulty Uncoded 12/26/18 10:30 Breathing/Wheezing Home Medications: Home Medications Acetaminophen with Codeine [Acetaminophen-Cod #3 Tablet] 1 each PO ONCE PRN 11/06 [History Confirmed 12/26/18] PMH/Surg Hx/FS Hx/Imm Hx Respiratory History: Asthma - Surgical History Surgical History: Yes Surgery Procedure, Year, and Place: TONSILLECTOMY - Family History Known Family History: Positive: Non-Contributory - Social History Lives: With Family Alcohol Use: None Substance Use Type: None Smoking Status (MU): Current Every Day Smoker Type: Cigarettes Amount Used/How Often: 5-6 CIGS PER DAY Length of Time of Smoking/Using Tobacco: 5 YRS Have You Smoked in the Last Year: Yes When Did the Patient Quit Smoking/Using Tobacco: 12/12/13 Household Exposure Type: Cigarettes - Immunization History Most Recent Influenza Vaccination: season Review of Systems All Other Systems Reviewed And Are Negative: No Constitutional: Positive: Negative Skin: Positive: Negative Eyes: Positive: Negative ENT: Positive: Negative Respiratory: Positive: Cough Cardiovascular: Positive: Negative Gastrointestinal: Positive: Negative Neurological: Positive: Negative Psychological: Positive: Negative Physical Exam - Summary Physical Exam Summary: GENERAL: NAD. WDWN. No pain distress. SKIN: No rashes, sores, lesions, or open wounds. HEENT: Head: AT/NC Eyes: EOM intact. Conjunctiva clear without inflammation or discharge. Ears: Hearing grossly normal. TMs intact, no bulging, erythema, or edema. Nose: Nasal mucosa pink and moist. NTTP maxillary and frontal sinus. Throat: Posterior oropharynx without exudates, erythema, or tonsillar enlargement. Uvula midline. NECK: Supple. Nontender. No lymphadenopathy. CHEST: Scant wheezing throughout. No accessory muscle use. Breathing comfortably and in no distress. CV: RRR. Pulses intact. Cap refill <2seconds NEURO: Alert. PSYCH: Age appropriate behavior. Triage Information Reviewed: Yes Vital Signs: Vital Signs: Temp Pulse Resp BP Pulse Ox 97.8 F 83 16 124/70 98 12/26/18 10:24 12/26/18 10:24 12/26/18 10:24 12/26/18 10:24 12/26/18 10:24 Vital Signs Reviewed: Yes Respiratory Course/Dx - Course Course Of Treatment: Suspect bronchitis or asthma exacerbation. Encouraged to cut back on smoking. Will rx for albuterol inhaler and prednisone. Advised to be rechecked if her symptoms do not improve within 1 week - Differential Dx/Diagnosis Provider Diagnosis: Bronchitis Discharge ED - Sign-Out/Discharge Documenting (check all that apply): Patient Departure All imaging exams completed and their final reports reviewed: No Studies - Discharge Plan Condition: Stable Disposition: HOME Prescriptions: Albuterol HFA INHALER* [Ventolin HFA Inhaler*] 2 puff INH Q4H PRN #1 mdi PRN Reason: Wheezing Benzonatate CAP* [Tessalon 100 MG CAP*] 100 mg PO TID PRN #21 cap PRN Reason: Cough predniSONE TAB* [Deltasone 20 MG TAB*] 40 mg PO DAILY #10 tab Patient Education Materials: Acute Bronchitis (ED) Referrals: Vitor Crain MD [Primary Care Provider] - Additional Instructions: If you develop a fever, shortness of breath, chest pain, new or worsening symptoms - please call your PCP or go to the ED immediately. - Billing Disposition and Condition Condition: STABLE Disposition: Home
[2018-12-26 10:29] VITALS: BP 124/70
== END 2018-12-26 10:57 | disposition home or self-care (01) ==
LOC: UCCORT 09:50
DX: J40 Bronchitis, not specified as acute or chronic (principal); F17.210 Nicotine dependence, cigarettes, uncomplicated; Z91.040 Latex allergy status; Z88.8 Allergy status to other drugs, medicaments and biological substances
CPT/HCPCS: 99212; G0463

== ENCOUNTER 2019-06-02 20:45 | Emergency (ER) | payer BC, OTHER ==
--- OUTSIDE RECORDS SUMMARY | 2019-06-02 20:54 | XMS REPORT | Continuity of Care Document ---
:1990 External Reference #:[id number] Author Name Kay Greenfield NP (transmitted by agent of provider Arlin Mckeon) Address [address] [place] [address] Care Team Providers Name Role Phone Ana Lilia Nice MD - Care Team Information Automotive Service Writer [phone] Ophthalmology Vitor Crain MD - Family Care Team Information Automotive Service Writer Medicine Farhat Casiano M.D. - Ophthalmology Care Team Information Automotive Service Writer Jose Carlos Damon MD - Diagnostic Care Team Information Automotive Service Writer Neuroimaging Wi, In MD Can - Gynecology Care Team Information Automotive Service Writer [phone] Maximo Castano MD - Defensive Fire Control Systems Operator Care Team Information Automotive Service Writer [phone] Problems Active Problems Provider Date Benign intracranial hypertension Leighton Perea MD Onset: 04/02/2015 Migraine without aura, not refractory Leighton Perea MD Onset: 04/02/2015 Asthma without status asthmaticus Onset: 05/01/2013 Social History Type Date Description Comments Sex Unknown ETOH Use Denies alcohol use Recreational Drug Use Denies Drug Use Tobacco Use Start: Unknown Heavy tobacco smoker (more than 10 cigarettes/day) Smoking Status Reviewed: 03/06/19 Heavy tobacco smoker (more than 10 cigarettes/day) Exercise Type/Frequency Exercises regularly Allergies, Adverse Reactions, Alerts Active Allergies Reaction Severity Comments Date Latex 06/28/2014 Terbinafine 06/28/2014 Lactose 04/14/2019 Medications Active Medications SIG Qnty Indications Ordering Date Provider Phentermine HCL 1 by mouth every 30tabs E66.09 Vitor 03/06/2019 37.5mg day, 1/2 hour MD Breann Tablets before the meal or 2 hours after the meal Aimovig inject sq once a 1ml G43.719 Kirby AdarshKi 03/01/2019 70mg/ml Solution month Louisa Caldera Auto-Inject Metoclopramide HCL take one tablet 90tabs Kirby AdarshKi 02/08/2019 10mg by mouth every 8 Louisa Caldera Tablets hours as needed for migraine Acetazolamide Take 1 tab by 60tabs Kirby AdarshKi 02/01/2019 250mg Tablets mouth at night. Louisa Caldera Ventolin HFA inhale two puffs 8gm Vitor 108(90Base) by mouth every 4 MD Breann mcg/Act Aerosol to 6 hours as needed for wheezing History Medications Metoclopramide HCL take one tablet 90tabs Kirby AdarshKi 02/08/2019 - 10mg by mouth every 6 Louisa Caldera 02/08/2019 Tablets Dispers hours, as needed for nausea and vomiting. Metoclopramide HCL take one tablet 90tabs G93.2 Kirby SKi 02/08/2019 - 10mg by mouth every 6 Louisa Caldera 02/08/2019 Tablets Dispers hours, as needed for nausea and vomiting. Amitriptyline HCL 1 by mouth every 90tabs G43.719 Kirby AltamiranoKi 12/21/2018 - 10mg night at bedtime Louisa Caldera 01/31/2019 Tablets for 1 week then 2 every night at bedtime for 1 week then 3 every night at bedtime Immunizations CPT Code Status Date Vaccine Lot # [id number] Given 02/01/2019 Influenza Virus Vaccine, Quadrivalent, Split, Preservative Free [id number] Given 10/15/2013 Tdap - Tetanus/Diptheria/Acellular Pertussis Vital Signs Date Vital Result Comment 04/14/2019 4:44pm Respiratory Rate 16 /min Body Temperature 97.9 F Pain Level 0 03/06/2019 1:15pm Height 62 inches 5'2" Weight 216.00 lb BP Systolic 110 mmHg BP Diastolic 68 mmHg BMI (Body Mass Index) 39.5 kg/m2 Results Test Acquired Date Facility Test Result H/L Range Note Laboratory test 04/14/2019 [facility] Urine positive Negative finding Laboratory test 12/26/2018 [facility] Vitamin B12 277 pg/mL Normal 180-914 [address] [place] [address] [phone] TSH (Thyroid Stim Horm) 0.88 mcIU/mL Normal 0.34-5.60 Lyme Screen W/ Reflex To WB Negative Negative 1 Normal Range 180 to 914 Indeterminate Range 145 to 180 Deficient Range <145 Procedures Date Code Description Status 03/01/2019 168907227 Diabetic Retinal Eye Exam Completed 01/04/2019 514473051 Diabetic Foot Exam Completed 07/04/2017 [id number] Diabetic Retinal Eye Exam Completed 01/07/2017 [id number] Diabetic Retinal Eye Exam Completed 08/12/2016 [id number] Diabetic Retinal Eye Exam Completed 06/23/2016 [id number] Diabetic Retinal Eye Exam Completed 03/25/2016 [id number] Diabetic Retinal Eye Exam Completed 07/08/2015 [id number] Diabetic Retinal Eye Exam Completed 04/17/2015 [id number] Diabetic Retinal Eye Exam Completed 04/15/2015 [id number] Diabetic Retinal Eye Exam Completed 06/06/2014 [id number] Diabetic Retinal Eye Exam Completed Medical Devices Description No Information Available Encounters Type Date Location Provider Dx Diagnosis Office Visit 04/14/2019 [facility] Kay Z32.01 Encounter for 4:39p Walk-in at Ian Greenfield NP test, Drugs result positive Office Visit 03/06/2019 [facility] Vitor E66.09 Other obesity due 1:30p MD Breann to excess calories Office Visit 03/01/2019 [facility] Joao Leija NP G93.2 Benign intracranial 9:00a Neurologic Serv Of hypertension [facility] G43.719 Chronic migraine w/o aura, intractable, w/o stat migr Office Visit 02/08/2019 [facility] Joao Leija G93.2 Benign 10:30a Neurologic Serv Of [facility] intracranial [facility] hypertension G43.719 Chronic migraine w/o aura, intractable, w/o stat migr Office Visit 02/01/2019 [facility] Joao Leija G43.719 Chronic migraine 2:30p Neurologic Serv Of [facility] w/o aura, [facility] intractable, w/o stat migr G93.2 Benign intracranial hypertension Office Visit 12/21/2018 [place] Kirby Manjarrez G93.2 Benign 4:00p Neurologic Serv Of Louisa Caldera intracranial [facility] hypertension G43.719 Chronic migraine w/o aura, intractable, w/o stat migr R41.3 Other amnesia E66.09 Other obesity due to excess calories Assessments Date Code Description Provider 04/14/2019 Z32.01 Encounter for test, result Kay Greenfield NP positive 03/06/2019 E66.09 Other obesity due to excess calories Vitor Crain MD 03/01/2019 G93.2 Benign intracranial hypertension Joao [place], [place] 03/01/2019 G43.719 Chronic migraine without aura, intractable, Joao [place], [place] without status migrainosus 02/08/2019 G93.2 Benign intracranial hypertension Joao [place]na[place], [place] 02/08/2019 G43.719 Chronic migraine without aura, intractable, Joao [place], [place] without status migrainosus 02/01/2019 G43.719 Chronic migraine without aura, intractable, Joao [place]na[place], [place] without status migrainosus 02/01/2019 G93.2 Benign intracranial hypertension Joao Liss, [place] 12/21/2018 G93.2 Benign intracranial hypertension Kirby Caldera M.D. 12/21/2018 G43.719 Chronic migraine without aura, intractable, Kirby Caldera M.D. without status migrainosus 12/21/2018 R41.3 Other amnesia Kirby Caldera M.D. 12/21/2018 E66.09 Other obesity due to excess calories Kirby Caldera M.D. Plan of Treatment Future Appointment(s):07/05/2019 2:00 pm - BRITANY Preston at [facility]07/05/2019 1:00 pm - Joao Leija NP at [facility]rolog[facility] Of [facility]04/14/2019 - Kay Greenfield NPZ32.01 Encounter for test, result positiveRecommendations:No ibuprofen, only tylenol for pain. Follow up with your OBB/SLOT MACHINE KEY PERSON or PCP for further care. Your test was positive. Functional Status Description No Information Available Mental Status Description No Information Available Referrals Description No Information Available
[2019-06-02 21:03] VITALS: BP 135/81
--- NOTE | 2019-06-02 21:06 | UC ---
Respiratory Complaint HPI - HPI Summary HPI Summary: 28 y/o female presents to the urgent care c/o productive cough w/ clear phlegm for the past 5 days. Symptoms started w/ sinus congestion and PND. Her son was Dx w/ bronchitis last week and her daughter w/ strep yesterday. Mild sore throat, 2/10. However, she developed wheezing last night and she thinks it is more bronchitis. She has Hx of asthma. She has nebulizer at home, but she forgot to use it. She took ibuprofen PO this afternoon to alleviate symptoms. Pt denies fever, SOB, chest pain, abdominal pain, N/V/D, neck pain, dizziness, or Hx of recent travel. - History of Current Complaint Chief Complaint: UCGeneralIllness Stated Complaint: COUGH Time Seen by Provider: 06/02/19 21:05 Hx Obtained From: Patient Hx Last Menstrual Period: IUD placed ?: No Onset/Duration: Gradual Onset, Lasting Days - 5 days, Still Present, Worse Since - yesterday w/ wheezing Timing: Intermittent Episodes Severity Initially: Mild Severity Currently: Mild Pain Intensity: 2 - sore throat Pain Scale Used: 0-10 Numeric Character: Cough: Productive, Sputum Description: - clear Aggravating Factors: Recumbent Position Alleviating Factors: OTC Meds Associated Signs And Symptoms: Positive: Wheezing - since yesterday, Nasal Congestion - clear, Sinus Discomfort. Negative: Fever, Chills - Risk Factors Pulmonary Embolism Risk Factors: Negative Cardiac Risk Factors: Negative Pseudomonas Risk Factors: Negative Tuberculosis Risk Factors: Negative - Allergies/Home Medications Allergies/Adverse Reactions: Allergies Allergy/AdvReac Type Severity Reaction Status Date / Time latex Allergy Mild localized Verified 06/02/19 21:03 skin irritation turbinophine Allergy Intermediate Difficulty Uncoded 06/02/19 21:03 Breathing/Wheezing Home Medications: Home Medications Benzonatate CAP* [Tessalon 100 MG CAP*] 100 mg PO TID PRN #21 cap 06/02/19 [Rx] Oseltamivir CAP* [Tamiflu CAP*] 75 mg PO BID #9 cap 06/02/19 [Rx] Phentermine HCl 37.5 mg PO DAILY 06/02/19 [History Confirmed 06/02/19] predniSONE 20 mg TAB [Deltasone 20 MG TAB*] 40 mg PO DAILY #8 tab 06/02/19 [Rx] PMH/Surg Hx/FS Hx/Imm Hx Previously Healthy: Yes Respiratory History: Asthma - Surgical History Surgical History: Yes Surgery Procedure, Year, and Place: TONSILLECTOMY - Family History Known Family History: Positive: Hypertension, Diabetes, Other - non contributory - Social History Occupation: Employed Full-time Lives: With Family Alcohol Use: None Substance Use Type: None Smoking Status (MU): Current Every Day Smoker Type: Cigarettes Amount Used/How Often: 5-6 CIGS PER DAY Length of Time of Smoking/Using Tobacco: 5 YRS Have You Smoked in the Last Year: Yes When Did the Patient Quit Smoking/Using Tobacco: 12/12/13 Household Exposure Type: Cigarettes - Immunization History Most Recent Influenza Vaccination: season Review of Systems All Other Systems Reviewed And Are Negative: Yes Constitutional: Positive: Negative Skin: Positive: Negative Eyes: Positive: Negative ENT: Positive: Sore Throat - mild, Nasal Discharge - clear, Sinus Congestion Respiratory: Positive: Cough - clear phlegm, Other - wheezing. Negative: Shortness Of Breath Cardiovascular: Positive: Negative Gastrointestinal: Positive: Negative Genitourinary: Positive: Negative Motor: Positive: Negative Neurovascular: Positive: Negative Musculoskeletal: Positive: Negative Neurological/Mental Status: Positive: Negative Psychological: Positive: Negative Is Patient Immunocompromised?: No Physical Exam - Summary Physical Exam Summary: Vital Signs Reviewed: Yes General: well developed, well nourished female sitting in the examining table w/ o any apparent distress Eyes: Positive: Conjunctiva Clear - PERRLA, EOMI, fundi grossly normal ENT: Positive: Normal ENT inspection, Hearing grossly normal, Pharynx normal, Nasal congestion - edematous and erythematous nasal mucosa, Nasal drainage - yellowish drainage, TMs normal. Negative: Tonsillar swelling, Tonsillar exudate Neck: Positive: Supple, Nontender, No Lymphadenopathy Respiratory: no orthopnea or dyspnea. Able to speak in full sentences, no retractions or accessory muscle use, no tripod position, stridor, or head bobbing. Positive breath sounds bilaterally. diffuse scattered wheezing on b/ L lungs, mild rhonchi, no crackles or rales, Cardiovascular: Positive: RRR, No Murmur, Pulses Normal, Brisk Capillary Refill Abdomen Description: Positive: Nontender, No Organomegaly, Soft. Negative: CVA Tenderness (R), CVA Tenderness (L) Bowel Sounds: Positive: Present Musculoskeletal Exam: Normal Musculoskeletal: Positive: Strength Intact, ROM Intact, No Edema Neurological Exam: Normal Psychological Exam: Normal Skin Exam: Normal Triage Information Reviewed: Yes Vital Signs: Initial Vital Signs Temp 98.9 F 06/02/19 20:57 Pulse 109 06/02/19 20:57 Resp 18 06/02/19 20:57 BP 135/81 06/02/19 20:57 Pulse Ox 100 06/02/19 20:57 Respiratory Course/Dx - Course Course Of Treatment: 28 y/o female presents to the urgent care c/o productive cough w/ clear phlegm for the past 5 days. Symptoms started w/ sinus congestion and PND. Her son was Dx w/ bronchitis last week and her daughter w/ strep yesterday. Mild sore throat, 04/30. However, she developed wheezing last night and she thinks it is more bronchitis. She has Hx of asthma. She has nebulizer at home, but she forgot to use it. She took ibuprofen PO this afternoon to alleviate symptoms. Pt denies fever, SOB, chest pain, abdominal pain, N/V/D, neck pain, dizziness, or recent travel. Hx obtained. Pt w/ hemodynamically stable, A&OX3, VS:WNL. Pt w/ scattered wheezes on bilaterally lungs, and mild rhonchi, good air entry B/L on examination. O2Sat:100%. Rapid strep: negative and Rapid influenza A&B: positive influenza A. Pt given Prednisone PO and Duoneb Treatment to alleviate symptoms. Pt tolerated well treatment and lungs improved, and wheezing resolved. Patient Prednisone PO taper dose and advised to start Albuterol neb treat. and Tessalon Tabs PO. Pt request Tamiflu PO since she states her symptoms got worsen today . Pt Rx Tamiflu PO to alleviate symptoms as directed below. The patient was recommended to increase fluid intake. Take medications as recommended. Pt advised to return to the clinic or f/u w/ her PCP if symptoms do not improve. All D/C instructions explained. Patient understood and agree w/ plan of care. Pt left clinic hemodynamically stable , A& OX3 - Differential Dx/Diagnosis Differential Diagnosis/HQI/PQRI: Asthma, Bronchitis, Exacerbation Of COPD, Influenza, Laryngitis, Lower Resp Infection, Sinusitis, Other - strep Provider Diagnosis: Asthma exacerbation, Influenza A Discharge ED - Sign-Out/Discharge Documenting (check all that apply): Patient Departure - D/C home All imaging exams completed and their final reports reviewed: No Studies - Discharge Plan Condition: Stable Disposition: HOME Prescriptions: Benzonatate CAP* [Tessalon 100 MG CAP*] 100 mg PO TID PRN #21 cap PRN Reason: Cough Oseltamivir CAP* [Tamiflu CAP*] 75 mg PO BID #9 cap predniSONE 20 mg TAB [Deltasone 20 MG TAB*] 40 mg PO DAILY #8 tab Patient Education Materials: Asthma (ED), Influenza (ED) Referrals: Vitor Crain MD [Primary Care Provider] - 3 Days Additional Instructions: 1- Take Prednisone PO taper dose as directed starting tomorrow. First loading dose given today. 2- Please take Tamiflu PO as directed below to alleviate symptoms. First dose given tonight. Take Tessalon PO to alleviate cough 2-Use the Duoneb nebulizer treatment you have at home to alleviate wheezing as directed . Increase fluid intake, rest and eat well. 3- If symptoms do not improve or worsen or your develop SOB with fever and severe wheezing please go immediately to the ER further evaluation and treatment. 4- If you develop fever please take ibuprofen PO q6-8hrs prn as instructed after meals to alleviate pain and swelling. Increase fluid intake, eat well, rest and avoid strenuous exercise. Take vitamin C to boost your immune system. 5- If not improvement of symptoms please F/u with your PCP in 3 days for further management on your Asthma - Billing Disposition and Condition Condition: STABLE Disposition: Home
[2019-06-02] MEDS ORDERED: Albuterol/Ipratropium NEB.SOL* Albuterol 2.5 MG/Ipratropium 0.5 MG 3 ML INH ONE (21:18)
[2019-06-02 21:39] LABS: Influenza A Molecular POSITIVE (Negative)
[2019-06-02] MEDS ORDERED: Oseltamivir CAP* 75 MG CAP PO ONE (21:45)
== END 2019-06-02 22:04 | disposition home or self-care (01) ==
LOC: UCCORT 20:45
DX: J10.1 Influenza due to other identified influenza virus with other respiratory manifestations (principal); J45.901 Unspecified asthma with (acute) exacerbation; F17.210 Nicotine dependence, cigarettes, uncomplicated; Z79.52 Long term (current) use of systemic steroids; Z91.040 Latex allergy status; Z88.8 Allergy status to other drugs, medicaments and biological substances
CPT/HCPCS: 87651; 99213; A9270-GY; G0463; J7512